=== PATIENT | male | born 1950 | race Caucasian/White ===

== ENCOUNTER 2018-02-13 18:52 | Inpatient (IN) | payer BC ==
[~2018-02-13] VITALS: Ht 180.3 cm; Wt 62.9 kg
[2018-02-13 19:19] LABS: HEMATOCRIT 25.3 % (38.0-50.0); HEMOGLOBIN 8.8 G/DL (12.5-16.6); MCH 35.9 PG (29.0-34.0); MCHC 34.8 G/DL (30.0-36.0); MCV 103.3 FL (86-99); NRBC (%) 0.8 /100 WBC (0-0); PLATELET COUNT 59 K/uL (156-360); RBC DIS.WIDTH-CV 13.5 % (11.8-14.6); RBC DIS.WIDTH-SD 51.2 % (39-53); RED BLOOD COUNT 2.45 M/uL (4.00-5.50); WHITE BLOOD COUNT 3.6 K/uL (4.1-10.2)
[2018-02-13 19:31] LABS: CHLORIDE 105 mEq/L (99-109); POTASSIUM 4.4 mEq/L (3.7-5.4); SODIUM 138 mEq/L (136-147)
[2018-02-13 19:32] LABS: GLUCOSE 141 mg/dL (70-99)
[2018-02-13 19:36] LABS: CREATININE 0.7 mg/dL (0.6-1.3); GFR ESTIMATE (CALCULATED) > 59 mL/min/ (58.99-99999)
[2018-02-13 19:37] LABS: UREA NITROGEN (BUN) 18 mg/dL (9-23)
[2018-02-13] MEDS ORDERED: OMEPRAZOLE20 MG PO (21:20)
[2018-02-13] MEDS ORDERED: TRAMADOL HCL50 MG PO (21:21)
[2018-02-13] MEDS ORDERED: CITALOPRAM HBR10 MG PO (21:25)
[2018-02-13] MEDS ORDERED: ROPINIROLE HC0.25 MG PO (21:25)
[2018-02-13] MEDS ORDERED: DIGITEK250 MC2 PO (21:26)
[2018-02-13] MEDS ORDERED: ALPRAZOLAM0.25 M2 PO (21:28)
[2018-02-13] MEDS ORDERED: ONE DAILY FOR1 EAC2 PO (21:30)
[2018-02-13] MEDS ORDERED: CYANOCOBALAM1000 MCG PO (21:32)
[2018-02-14] VITALS (17 sets, daily range): BP systolic 126–171; BP diastolic 58–75
[2018-02-14 05:10] LABS: HEMATOCRIT 21.4 % (38.0-50.0); HEMOGLOBIN 7.1 G/DL (12.5-16.6); MCV 100.9 FL (86-99)
[2018-02-14 05:33] LABS: ALBUMIN 3.3 G/DL (3.2-4.8); ALKALINE PHOSPHATASE 59 IU/L (3-129); ALT (GPT) 14 IU/L (3-49); AST (GOT) 17 IU/L (2-34); CHLORIDE 106 MEQ/L (99-109); CREATININE 0.7 MG/DL (0.6-1.3); GFR ESTIMATE (CALCULATED) > 59 mL/min/ (58.99-99999); GLUCOSE 110 mg/dL (70-99); POTASSIUM 3.7 MEQ/L (3.7-5.4); SODIUM 140 MEQ/L (136-147); TOTAL BILIRUBIN 0.9 MG/DL (0.0-1.0); TOTAL PROTEIN 5.8 G/DL (6.4-8.3); UREA NITROGEN (BUN) 14 mg/dL (9-23)
[2018-02-14 07:36] LABS: HEMATOCRIT 21.9 % (38.0-50.0); HEMOGLOBIN 7.2 G/DL (12.5-16.6); MCHC 32.9 G/DL (30.0-36.0); MCV 100.5 FL (86-99); RBC DIS.WIDTH-CV 17.1 % (11.8-14.6); RBC DIS.WIDTH-SD 62.1 % (39-53); RED BLOOD COUNT 2.18 M/uL (4.00-5.50); WHITE BLOOD COUNT 2.7 K/uL (4.1-10.2)
[2018-02-14 07:38] LABS: PLATELET COUNT 78 K/uL (156-360)
[2018-02-14 15:14] LABS: HEMOGLOBIN 7.4 G/DL (12.5-16.6)
[2018-02-14 15:15] LABS: MCV 96.5 FL (86-99)
[2018-02-15 00:40] VITALS: BP 125/60
[2018-02-15 04:27] VITALS: BP 124/58
[2018-02-15 05:27] LABS: BASOPHIL (%) 0.3 % (0-1); EOSINOPHIL (%) 2.8 % (0-5); EOSINOPHIL COUNT 0.1 K/uL (0-0.3); HEMATOCRIT 22.4 % (38.0-50.0); HEMOGLOBIN 7.5 G/DL (12.5-16.6); LYMPHOCYTE (%) 33.4 % (15-42); MCH 32.6 PG (29.0-34.0); MCHC 33.5 G/DL (30.0-36.0); MCV 97.4 FL (86-99); MONOCYTE (%) 5.9 % (3-12); MONOCYTE COUNT 0.2 K/uL (0-0.8); NEUTROPHIL (%) 56.6 % (45-76); NEUTROPHIL COUNT 1.6 K/uL (1.8-6.4); PLATELET COUNT 73 K/uL (156-360); RBC DIS.WIDTH-CV 18.1 % (11.8-14.6); RBC DIS.WIDTH-SD 63.3 % (39-53); WHITE BLOOD COUNT 2.9 K/uL (4.1-10.2)
[2018-02-15 05:55] LABS: CHLORIDE 108 MEQ/L (99-109); CREATININE 0.7 MG/DL (0.6-1.3); GFR ESTIMATE (CALCULATED) > 59 mL/min/ (58.99-99999); GLUCOSE 96 mg/dL (70-99); POTASSIUM 3.4 MEQ/L (3.7-5.4); SODIUM 142 MEQ/L (136-147); UREA NITROGEN (BUN) 8 mg/dL (9-23)
[2018-02-15 11:53] VITALS: BP 120/56
[2018-02-15 17:11] VITALS: BP 117/64
[2018-02-15 19:00] VITALS: BP 129/68
[2018-02-15 23:56] VITALS: BP 141/66
[2018-02-16 05:54] LABS: BASOPHIL (%) 0 % (0-1); EOSINOPHIL (%) 2.9 % (0-5); EOSINOPHIL COUNT 0.1 K/uL (0-0.3); HEMATOCRIT 22.1 % (38.0-50.0); HEMOGLOBIN 7.5 G/DL (12.5-16.6); IMMATURE GRANULOCYTE (%) 0.6 % (0.0-0.7); LYMPHOCYTE (%) 38.5 % (15-42); LYMPHOCYTE COUNT 1.2 K/uL (1.0-2.8); MCH 33.3 PG (29.0-34.0); MCHC 33.9 G/DL (30.0-36.0); MCV 98.2 FL (86-99); MONOCYTE (%) 5.7 % (3-12); MONOCYTE COUNT 0.2 K/uL (0-0.8); NEUTROPHIL (%) 52.3 % (45-76); NEUTROPHIL COUNT 1.6 K/uL (1.8-6.4); PLATELET COUNT 81 K/uL (156-360); RBC DIS.WIDTH-CV 17.4 % (11.8-14.6); RBC DIS.WIDTH-SD 61.1 % (39-53); RED BLOOD COUNT 2.25 M/uL (4.00-5.50); WHITE BLOOD COUNT 3.1 K/uL (4.1-10.2)
[2018-02-16 07:40] VITALS: BP 130/65
[2018-02-16 11:38] VITALS: BP 135/70
== END 2018-02-16 11:41 | disposition home or self-care (01) | DRG 920 ==
LOC: EME → EDBD 18:52 → EDOF 22:11 → ENRESERV 22:12 → 4SOUTH 23:12
PROVIDERS: Internal Medicine; Physician Assistant
PROC: 30233R1 Transfusion of Nonautologous Platelets into Peripheral Vein, Percutaneous Approach (ICD-10-PCS; 2018-02-13)
PROC: 0W3P8ZZ Control Bleeding in Gastrointestinal Tract, Via Natural or Artificial Opening Endoscopic (ICD-10-PCS; principal; 2018-02-14)
PROC: 30233N1 Transfusion of Nonautologous Red Blood Cells into Peripheral Vein, Percutaneous Approach (ICD-10-PCS; 2018-02-14)
DX: K91.840 Postprocedural hemorrhage of a digestive system organ or structure following a digestive system procedure (principal); Y83.8 Other surgical procedures as the cause of abnormal reaction of the patient, or of later complication, without mention of misadventure at the time of the procedure; D61.818 Other pancytopenia; D46.9 Myelodysplastic syndrome, unspecified; J45.909 Unspecified asthma, uncomplicated; K21.9 Gastro-esophageal reflux disease without esophagitis; M41.9 Scoliosis, unspecified; I49.9 Cardiac arrhythmia, unspecified; G25.81 Restless legs syndrome; G89.29 Other chronic pain; M54.9 Dorsalgia, unspecified; N28.89 Other specified disorders of kidney and ureter; G47.00 Insomnia, unspecified; Z87.891 Personal history of nicotine dependence; Z86.010 Personal history of colon polyps
CPT/HCPCS: 74177; 80048; 80053; 85014; 85018; 85025; 85027; 86850; 86900; 86901; 86920; 99281; 99285; G0378; J2250; J3010; J7030; P9016; P9035; P9040